=== PATIENT | female | born 1985 | race Caucasian/White ===

== ENCOUNTER 2021-04-15 09:05 | Outpatient (CLI) | payer OTHER, SELFPAY ==
--- NOTE | ~2021-04-15 | XR_ITS ---
XR chest 2V DATE: 04/15/2021 09:33 INDICATION: Chest pain TECHNIQUE: PA and lateral views COMPARISON: None FINDINGS: Bilateral hyperinflation. No pulmonary infiltrate or consolidation, pleural effusion or pul monary vascular congestion or pneumothorax. Normal heart size. No hilar or mediastinal enlargement. There is minimal levoscoliosis of the thoracic spine. IMPRESSION: Bilateral hyperinflation Reviewed, dictated and finalized at location B. IMPRESSION: Bilateral hyperinflation
--- NOTE | 2021-04-15 09:35 | ECG_ITS ---
Measurements Intervals [place] Rate: 69 P: 64 OK: 141 QRS: 81 QRSD: 92 T: 49 QT: 378 QTc: 405 Interpretive Statements SINUS RHYTHM WITH SINUS ARRHYTHMIA BASELINE ARTIFACT- II, III, AVL, AVF NORMAL ECG Electronically Signed On 04-15-2021 11:10:01 CDT by Milton Brizuela D.O.
== END 2021-04-15 09:06 | disposition home or self-care (01) ==
PROVIDERS: PCP Physician Assistant; Visit Provider Physician Assistant
DX: R07.9 Chest pain, unspecified (principal); R91.8 Other nonspecific abnormal finding of lung field
CPT/HCPCS: 71046; 93005

== ENCOUNTER 2021-05-01 11:26 | Outpatient (CLI) | payer OTHER, SELFPAY ==
--- NOTE | ~2021-05-01 | US_ITS ---
US soft tissue head and neck 05/01/2021 11:45 Indication: Cervical lymphadenopathy Procedure: High-resolution ultrasound of the neck Comparison: No prior studies for comparison. Findings: There are mildly enlarged left cervical lymph nodes, largest anteriorly near the submandibu lar gland measuring 1.4 cm. Smaller 1 cm lymph node also identified, both with normal fatty hilum, li maninder reactive. Impression: 1: Mild left cervical lymphadenopathy, likely reactive. Reviewed, dictated and finalized at location A. Impression: 1: Mild left cervical lymphadenopathy, likely reactive.
== END 2021-05-01 11:27 | disposition home or self-care (01) ==
LOC: ANHIMG 11:27
PROVIDERS: PCP Physician Assistant; Visit Provider Physician Assistant
DX: R59.0 Localized enlarged lymph nodes (principal)
CPT/HCPCS: 76536

== ENCOUNTER 2021-07-22 14:18 | Outpatient (CLI) | payer OTHER, SELFPAY ==
--- NOTE | ~2021-07-22 | XR_ITS ---
EXAMINATION: XR tibia fibula RT 2V DATE: 07/22/2021 15:06 INDICATION: Right lower leg medial lesion. TECHNIQUE: 2 views of right tibia and fibula were obtained. COMPARISON: None. FINDINGS: Bone alignment is normal. No fracture. Joint spaces are well maintained. There is no knee j oint effusion. IMPRESSION: 1. Normal right tibia and fibula. Reviewed, dictated and finalized at location A. RAL ACCOUNTANT
--- NOTE | ~2021-07-22 | CT_ITS ---
EXAMINATION: CT abdomen pelvis w con DATE: 07/22/2021 15:11 INDICATION: Cervical lymphadenopathy. TECHNIQUE: Computed tomography (CT) of the abdomen and pelvis was performed with 100 cc Omnipaque 350 intravenous contrast. The dose-length product was 1071.94 mGy-cm. Automated exposure control and ite rative reconstruction technique were employed. COMPARISON: None. FINDINGS: Lung bases are unremarkable. Heart size is normal. No significant pleural or pericardial ef fusion. There is a small subcentimeter hypodensity of the right hepatic lobe, most likely benign cyst or hemangioma, although too small to characterize. The spleen, pancreas, adrenal glands and kidneys are unremarkable. Gallbladder is present. There are gallstones. Nonobstructive bowel gas pattern. No significant vascular abnormality. No lymphadenopathy. Small amount of free fluid in the pelvis, likel y physiologic. There are follicular changes in the ovaries. No significant lymphadenopathy of the abd omen or pelvis. There is mild thickening of the descending colon, sigmoid colon and rectum, suspiciou s for colitis. IMPRESSION: 1. Mild thickening of the distal colon and rectum, suspicious for colitis. 2: Small amount of free fluid in the pelvis, likely physiologic. Reviewed, dictated and finalized at location A. T LOADER
--- NOTE | ~2021-07-22 | CT_ITS ---
EXAMINATION: CT soft tissue neck w con DATE: 07/22/2021 15:10 INDICATION: Cervical lymphadenopathy. TECHNIQUE: Computed tomography (CT) of the neck was performed with 100 mL Omnipaque-350 intravenous c ontrast. Automated exposure control and iterative reconstruction technique were employed. The dose-le ngth product was 1071.94 mGy-cm. COMPARISON: Ultrasound 05/01/2021 FINDINGS: The visualized portions of the lung apices demonstrate smooth septal thickening and groundg lass opacities, consistent with mild pulmonary edema. There are no pathologically enlarged lymph node s. The paranasal sinuses are clear. The mastoid air cells are normal. The cervical spine is unremarka ble. IMPRESSION: 1. No lymphadenopathy. 2. Mild pulmonary edema. Reviewed, dictated and finalized at location A. GUIDE
== END 2021-07-22 14:19 | disposition home or self-care (01) ==
PROVIDERS: PCP Physician Assistant; Visit Provider Physician Assistant
DX: R59.0 Localized enlarged lymph nodes (principal); J81.1 Chronic pulmonary edema
CPT/HCPCS: 70491; 73590; 74177; Q9967

== ENCOUNTER 2022-09-23 18:52 | Emergency (ER) | payer OTHER, SELFPAY ==
[2022-09-23 18:59] VITALS: BP 132/72; PULSE 103; RESP 16; TEMP 37.2; O2SAT 99
--- NOTE | 2022-09-23 19:18 | ED.URI ---
HPI - URI/Sore Throat General Chief Complaint: Upper Respiratory Infection Stated Complaint: albert/congestion/uri Time Seen by Provider: 09/23/22 19:23 Source: patient, RN notes reviewed and old records reviewed Mode of arrival: ambulatory Limitations: no limitations History of Present Illness HPI Narrative: 37-year-old female presents to the [facility] with complaints of headache, congestion, URI States that she tested positive for COVID at home Symptoms just started yesterday Related Data Home Medications Medication Instructions Recorded Confirmed albuterol sulfate 90 mcg/actuation 90 mcg inhalation DAILY 09/23/22 09/23/22 aerosol inhaler azelastine 137 mcg (0.1 %) nasal 1 spray intranasal DAILY 09/23/22 09/23/22 spray aerosol beclomethasone dipropionate 40 40 mcg inhalation DAILY 09/23/22 09/23/22 mcg/actuation HFA breath activated aerosol (Qvar RediHaler) fexofenadine 180 mg tablet 180 mg PO DAILY 09/23/22 09/23/22 ([facility]) fluticasone propionate 50 2 spray intranasal DAILY 09/23/22 09/23/22 mcg/actuation nasal spray,suspension loratadine 10 mg tablet (Claritin) 10 mg PO DAILY 09/23/22 09/23/22 sertraline 50 mg tablet 50 mg PO DAILY 09/23/22 09/23/22 Allergies Allergy/AdvReac Type Severity Reaction Status Date / Time Penicillins Allergy Unknown Rash Verified 09/23/22 18:57 Review of Systems Review of Systems: All systems reviewed & are unremarkable except as noted in HPI and below Constitutional: Constitutional: Reports as per HPI, Reports fatigue and Reports fever(s) Eyes: Eyes: Reports no additional eye complaints ENT: Reports as per HPI Cardiovascular: Cardiovascular: Reports no additional cardiovascular complaints, Denies chest pain and Denies dyspnea Respiratory: Respiratory: Reports no additional respiratory complaints, Denies chest congestion, Denies cough and Denies dyspnea Gastrointestinal: Gastrointestinal: Reports no additional gastrointestinal complaints, Denies abdominal pain, Denies nausea and Denies vomiting Musculoskeletal: Musculoskeletal: Reports no additional musculoskeletal complaints Integumentary/Breasts: Skin/Breast: Reports system reviewed and no additional complaints, except as docu Neurologic: Reports system reviewed and no additional complaints, except as documented Psychiatric: Psychiatric: Reports no additional psychiatric complaints Allergic/Immunologic: Allergic/Immunologic: Reports no additional allergic/immunologic complaints PMFSH Comments At the time of my signature, I reviewed and agree with the nursing past medical, surgical, social, and family history. There is no relevant family history pertinent to the patient complaint. Exam Const: General: cooperative, healthy appearing, comfortable, no acute distress, well developed, alert and well nourished Nutritional Appearance: well nourished Orientation/consciousness: patient oriented x3 Limitations: no limitations HENMT: Head: normal to inspection Ears: hearing grossly normal bilaterally and external ears normal Face/Nose/Sinus: Normal external nose present, Normal nares present, Normal nasal mucous membranes and turbinates present and normal facial exam Face and sinus: normal facial exam Mouth: Yes Normal oral and palatal mucosa present, Yes lip normal and Yes moist mucous membranes Throat: posterior oropharynx normal and uvula midline Eyes: General: appearance normal, both eyes and all related structures Alignment and Position: alignment normal Periorbital: periorbital findings normal Conjunctivae: conjunctivae normal Pupils: Equal, round and reactive pupils present EOM: EOMs intact bilaterally Neck: Neck: normal visual inspection, full ROM, no lymphadenopathy and no meningeal signs Chest: Chest palpation & inspection: normal inspection of the chest Resp: Effort & Inspection: normal respiratory effort and able to speak in complete sentences Auscultation: clear to auscultation bila
== END 2022-09-23 19:53 | disposition home or self-care (01) ==
PROVIDERS: Emergency Provider Nurse Practitioner; PCP Physician Assistant
DX: B34.9 Viral infection, unspecified (principal); Z20.822 Contact with and (suspected) exposure to COVID-19; J45.909 Unspecified asthma, uncomplicated
CPT/HCPCS: 87426; 99213; C9803; G0463